=== PATIENT | female | born 1975 | race Caucasian/White ===

== ENCOUNTER 2017-05-15 12:05 | Emergency (ER) | payer MEDICAID ==
[~2017-05-15] VITALS: Ht 162.6 cm; Wt 86.0 kg
[~2017-05-15 12:05] MED LIST: LEVO100T PO; OMEP20CA10 PO; ONDA4TAB6 PO; OXYC-150 PO
[2017-05-15] MEDS ORDERED: ketorolac trometh inj. 60 MG/2 ML VIAL IM ONE (12:20)
[2017-05-15] MEDS ORDERED: HYDR-569 PO (12:21)
[2017-05-15] MEDS ORDERED: DICL50TA8 PO (12:21)
[2017-05-15 12:33] VITALS: BP 128/87
== END 2017-05-15 12:35 | disposition home or self-care (01) ==
LOC: ER 12:05
DX: M54.9 Dorsalgia, unspecified (principal); G89.29 Other chronic pain; K21.9 Gastro-esophageal reflux disease without esophagitis; E03.9 Hypothyroidism, unspecified; E11.9 Type 2 diabetes mellitus without complications; G43.909 Migraine, unspecified, not intractable, without status migrainosus; Z90.710 Acquired absence of both cervix and uterus; Z90.49 Acquired absence of other specified parts of digestive tract; Z88.0 Allergy status to penicillin; Z88.2 Allergy status to sulfonamides; Z79.899 Other long term (current) drug therapy
CPT/HCPCS: 96372; 99283; J1885

== ENCOUNTER 2019-04-16 04:53 | Emergency (ER) | payer MEDICAID, MEDICARE ==
[~2019-04-16] VITALS: Ht 162.6 cm; Wt 100.0 kg
[~2019-04-16 04:53] MED LIST changes: +DICL50TA8 PO; +HYDR-4383 PO; -OMEP20CA10 PO; +OMEP20CA15 PO
[2019-04-16] MEDS ORDERED: normal saline 1000ML IV soln IV ONE (05:15)
[2019-04-16 05:53] LABS: PARTIAL THROMBOPLASTIN TIME 31 SECONDS (22-32)
[2019-04-16 05:55] LABS: ALANINE AMINOTRANSFERASE 143 U/L (12-78); ALBUMIN/GLOBULIN RATIO 0.6 (1.1-1.5); ALKALINE PHOSPHATASE 163 IU/L (46-116); ANION GAP 11 (8-16); ASPARTATE AMINO TRANSFERASE 134 U/L (10-37); BILIRUBIN,TOTAL 0.6 MG/DL (0.1-1.0); BLOOD UREA NITROGEN 6 MG/DL (7-18); BUN/CREATININE RATIO 7.6 (6.6-38.0); CALCIUM 8.9 MG/DL (8.5-10.1); CHLORIDE 98 MMOL/L (99-107); CREATININE 0.79 MG/DL (0.40-0.90); GLUCOSE 346 MG/DL (70-104); MAGNESIUM 1.9 MG/DL (1.5-2.4); POTASSIUM 3.7 MMOL/L (3.5-5.1); SODIUM 132 MMOL/L (135-145); TOTAL CARBON DIOXIDE 23.3 MMOL/L (24-32); TOTAL PROTEIN 7.8 G/DL (6.4-8.2); eGFR 80 ML/MIN
[2019-04-16 06:10] LABS: MEAN PLATELET VOLUME 9.5 FL (7.4-10.4)
[2019-04-16 06:13] LABS: CLARITY,URINE SLIGHTLY CLOUDY (Clear); COLOR,URINE YELLOW (Yellow); GLUCOSE, URINE 500 mg/dl (Neg); KETONES,URINE NEGATIVE (Neg); LEUKOCYTE ESTERASE ,URINE TRACE (Neg); NITRITES, URINE NEGATIVE (Neg); OCCULT BLOOD,URINE NEGATIVE (Neg); PH,URINE 5.5 (4.8-8.0); PROTEIN,URINE TRACE mg/dl (Neg); URINE HCG NEGATIVE (NEG); UROBILINOGEN,URINE 0.2 E.U/dL (0.2-1.0)
[2019-04-16 06:13] LABS: BASOPHILS # (AUTO) 0.1 X10'3 (0-0.2); EOSINOPHILS # (AUTO) 0.2 X10'3 (0-0.9); EOSINOPHILS % (AUTO) 2.6 % (0-6); HEMOGLOBIN 15.4 g/dl (12.0-16.0); LYMPHOCYTES # (AUTO) 2.7 X10'3 (1.1-4.8); LYMPHOCYTES % (AUTO) 37.5 % (21-51); MEAN CORPUSCULAR HEMOGLOBIN 32.7 PG (27.0-31.0); MEAN CORPUSCULAR HGB CONC 35.1 g/dL (33.0-36.5); MEAN CORPUSCULAR VOLUME 93.3 FL (78-98); MONOCYTES # (AUTO) 0.7 X10'3 (0-0.9); MONOCYTES % (AUTO) 9.2 % (2-12); NEUTROPHILS # (AUTO) 3.5 X10'3 (1.8-7.7); NEUTROPHILS % (AUTO) 49.7 % (42-75); PLATELET COUNT 269 X10'3 (140-440); RED BLOOD COUNT 4.71 X10'6 (4.20-5.60); RED CELL DISTRIBUTION WIDTH 13.3 % (11.5-14.5); WHITE BLOOD COUNT 7.1 X10'3 (4.5-11.0)
[2019-04-16 06:18] LABS: LIPASE 247 U/L (73-393)
[2019-04-16 06:19] LABS: UA COLLECTION TYPE CLN CATCH MIDSTREAM
[2019-04-16 06:33] LABS: BACTERIA,URINE 2+ /HPF (Neg); MUCUS STRANDS NONE SEEN /LPF (Neg); RBC,URINE 0-2 /HPF (0-2); SQUAMOUS EPITHELIAL CELL,UR MODERATE /LPF (FEW)
[2019-04-16] MEDS ORDERED: normal saline 1000ML IV soln IVB ONE (06:45)
[2019-04-16 07:48] VITALS: BP 139/75
--- NOTE | 2019-04-16 07:56 | NUR ---
Riki ([phone]) CONTACT FOR TRANSPORTATION. HE'S ON HIS WAY,
== END 2019-04-16 08:11 | disposition home or self-care (01) ==
LOC: ER 04:54
DX: J11.1 Influenza due to unidentified influenza virus with other respiratory manifestations (principal); G43.909 Migraine, unspecified, not intractable, without status migrainosus; K21.9 Gastro-esophageal reflux disease without esophagitis; E11.9 Type 2 diabetes mellitus without complications; E03.9 Hypothyroidism, unspecified; G89.29 Other chronic pain; Z90.49 Acquired absence of other specified parts of digestive tract; Z90.710 Acquired absence of both cervix and uterus; Z98.51 Tubal ligation status; Z98.890 Other specified postprocedural states; Z86.19 Personal history of other infectious and parasitic diseases; Z88.1 Allergy status to other antibiotic agents; Z88.0 Allergy status to penicillin; Z88.2 Allergy status to sulfonamides; Z79.899 Other long term (current) drug therapy
CPT/HCPCS: 36415; 71045; 74176; 80053; 81001; 81025; 83605; 83690; 83735; 84145; 85025; 85610; 85730; 87040; 87088; 87502; 87503; 93005; 99285; J7030

== ENCOUNTER 2019-04-25 19:02 | Emergency (ER) | payer MEDICARE ==
[~2019-04-25] VITALS: Ht 162.6 cm; Wt 97.8 kg
[2019-04-25] MEDS ORDERED: acetaminophen 325mg tablet PO STA (19:31)
[2019-04-25] MEDS ORDERED: normal saline 1000ML IV soln IV ONE (19:35)
[2019-04-25 19:38] LABS: CLARITY,URINE CLEAR (Clear); COLOR,URINE STRAW (Yellow); GLUCOSE, URINE >=1000 mg/dl (Neg); KETONES,URINE NEGATIVE (Neg); LEUKOCYTE ESTERASE ,URINE NEGATIVE (Neg); NITRITES, URINE NEGATIVE (Neg); OCCULT BLOOD,URINE NEGATIVE (Neg); PROTEIN,URINE NEGATIVE (Neg); UROBILINOGEN,URINE 0.2 E.U/dL (0.2-1.0)
[2019-04-25 19:43] LABS: UA COLLECTION TYPE CLN CATCH MIDSTREAM
[2019-04-25 19:45] LABS: BACTERIA,URINE NONE SEEN /HPF (Neg); RBC,URINE 0-2 /HPF (0-2); SQUAMOUS EPITHELIAL CELL,UR FEW /LPF (FEW); WBC,URINE NONE SEEN /HPF (0-4)
[2019-04-25 19:51] LABS: BASOPHILS # (AUTO) 0.1 X10'3 (0-0.2); BASOPHILS % (AUTO) 1.2 % (0-1); EOSINOPHILS # (AUTO) 0.2 X10'3 (0-0.9); EOSINOPHILS % (AUTO) 2.3 % (0-6); HEMATOCRIT 43.9 % (35.0-45.0); HEMOGLOBIN 15.6 g/dl (12.0-16.0); LYMPHOCYTES # (AUTO) 2.4 X10'3 (1.1-4.8); LYMPHOCYTES % (AUTO) 27.9 % (21-51); MEAN CORPUSCULAR HEMOGLOBIN 32.8 PG (27.0-31.0); MEAN CORPUSCULAR HGB CONC 35.6 g/dL (33.0-36.5); MEAN CORPUSCULAR VOLUME 92.3 FL (78-98); MEAN PLATELET VOLUME 9.4 FL (7.4-10.4); MONOCYTES # (AUTO) 0.6 X10'3 (0-0.9); MONOCYTES % (AUTO) 7.1 % (2-12); NEUTROPHILS # (AUTO) 5.2 X10'3 (1.8-7.7); NEUTROPHILS % (AUTO) 61.5 % (42-75); PLATELET COUNT 298 X10'3 (140-440); RED BLOOD COUNT 4.76 X10'6 (4.20-5.60); RED CELL DISTRIBUTION WIDTH 13.5 % (11.5-14.5); WHITE BLOOD COUNT 8.5 X10'3 (4.5-11.0)
[2019-04-25 20:10] LABS: ALANINE AMINOTRANSFERASE 186 U/L (12-78); ALBUMIN 3.1 G/DL (3.4-5.0); ALBUMIN/GLOBULIN RATIO 0.6 (1.1-1.5); ALKALINE PHOSPHATASE 167 IU/L (46-116); ANION GAP 11 (8-16); ASPARTATE AMINO TRANSFERASE 169 U/L (10-37); BILIRUBIN,TOTAL 0.3 MG/DL (0.1-1.0); BLOOD UREA NITROGEN 7 MG/DL (7-18); CALCIUM 8.9 MG/DL (8.5-10.1); CHLORIDE 97 MMOL/L (99-107); LIPASE 382 U/L (73-393); SODIUM 131 MMOL/L (135-145); TOTAL CARBON DIOXIDE 23.5 MMOL/L (24-32); TOTAL PROTEIN 8.2 G/DL (6.4-8.2); eGFR 61 ML/MIN
[2019-04-25 20:11] LABS: POTASSIUM 3.8 MMOL/L (3.5-5.1)
[2019-04-25 20:14] LABS: GLUCOSE 478 MG/DL (70-104)
[2019-04-25] MEDS ORDERED: insulin regular, human 10 units/0.1 ml syringe IV ONE (20:15)
[2019-04-25] MEDS ORDERED: clindamycin phosphate inj 600 MG in normal saline 50ml IV soln 50 ML IV ONE (20:15)
[2019-04-25] MEDS ORDERED: insulin regular, human U-100 3ml vial - multi-dose IV ONE (20:25)
[2019-04-25] MEDS ORDERED: DOXY100C76 PO (20:30)
[2019-04-25] MEDS ORDERED: PRED20TA PO (20:30)
[2019-04-25] MEDS ORDERED: clindamycin 600mg/D5W 50ml 50 ML IV ONE ×2 (20:40)
--- NOTE | 2019-04-25 21:28 | NUR ---
[place] OK TO DISCHARGE PT WITH BG OF 308
[2019-04-25 21:34] VITALS: BP 141/95
== END 2019-04-25 21:35 | disposition home or self-care (01) ==
LOC: ER 19:03
DX: J32.8 Other chronic sinusitis (principal); B96.89 Other specified bacterial agents as the cause of diseases classified elsewhere; E11.65 Type 2 diabetes mellitus with hyperglycemia; E87.2 Acidosis; G43.909 Migraine, unspecified, not intractable, without status migrainosus; K21.9 Gastro-esophageal reflux disease without esophagitis; E03.9 Hypothyroidism, unspecified; G89.29 Other chronic pain; F41.9 Anxiety disorder, unspecified; F32.9 Major depressive disorder, single episode, unspecified; Z90.49 Acquired absence of other specified parts of digestive tract; Z98.51 Tubal ligation status; Z86.19 Personal history of other infectious and parasitic diseases; Z72.89 Other problems related to lifestyle; Z79.2 Long term (current) use of antibiotics; Z88.0 Allergy status to penicillin; Z88.2 Allergy status to sulfonamides; Z88.8 Allergy status to other drugs, medicaments and biological substances; Z79.899 Other long term (current) drug therapy
CPT/HCPCS: 36415; 71045; 80053; 81001; 82948; 83605; 83690; 84145; 85025; 87040; 96365; 96375; 99284; J1815; J7030; J3490

== ENCOUNTER 2019-04-27 20:20 | Emergency (ER) | payer MEDICARE ==
[~2019-04-27] VITALS: Ht 162.6 cm; Wt 200.0 kg
[~2019-04-27 20:20] MED LIST changes: -DICL50TA8 PO; +DOXY100C76 PO; -HYDR-4383 PO; -ONDA4TAB6 PO; -OXYC-150 PO; +PRED20TA PO
[2019-04-27] MEDS ORDERED: normal saline 1000ML IV soln IVB ONE (20:40)
[2019-04-27] MEDS ORDERED: insulin regular, human 10 units/0.1 ml syringe IV ONE (20:40)
[2019-04-27] MEDS ORDERED: insulin regular, human U-100 3ml vial - multi-dose IV ONE (20:45)
[2019-04-27 20:54] LABS: BASOPHILS % (AUTO) 0.7 % (0-1); EOSINOPHILS % (AUTO) 0.2 % (0-6); HEMATOCRIT 44.1 % (35.0-45.0); HEMOGLOBIN 15.5 g/dl (12.0-16.0); LYMPHOCYTES # (AUTO) 1.1 X10'3 (1.1-4.8); LYMPHOCYTES % (AUTO) 15.9 % (21-51); MEAN CORPUSCULAR HEMOGLOBIN 32.9 PG (27.0-31.0); MEAN CORPUSCULAR HGB CONC 35.2 g/dL (33.0-36.5); MEAN CORPUSCULAR VOLUME 93.6 FL (78-98); MEAN PLATELET VOLUME 9.6 FL (7.4-10.4); MONOCYTES # (AUTO) 0.1 X10'3 (0-0.9); MONOCYTES % (AUTO) 1.9 % (2-12); NEUTROPHILS # (AUTO) 5.5 X10'3 (1.8-7.7); NEUTROPHILS % (AUTO) 81.3 % (42-75); PLATELET COUNT 306 X10'3 (140-440); RED BLOOD COUNT 4.71 X10'6 (4.20-5.60); RED CELL DISTRIBUTION WIDTH 13.2 % (11.5-14.5); WHITE BLOOD COUNT 6.7 X10'3 (4.5-11.0)
[2019-04-27 21:03] LABS: CLARITY,URINE CLEAR (Clear); COLOR,URINE STRAW (Yellow); GLUCOSE, URINE >=1000 mg/dl (Neg); KETONES,URINE 15 mg/dl (Neg); LEUKOCYTE ESTERASE ,URINE NEGATIVE (Neg); NITRITES, URINE NEGATIVE (Neg); OCCULT BLOOD,URINE NEGATIVE (Neg); PH,URINE 6.5 (4.8-8.0); PROTEIN,URINE NEGATIVE (Neg); UROBILINOGEN,URINE 0.2 E.U/dL (0.2-1.0)
[2019-04-27 21:05] LABS: URINE HCG NEGATIVE (NEG)
[2019-04-27 21:10] LABS: ALANINE AMINOTRANSFERASE 158 U/L (12-78); ALBUMIN 3.2 G/DL (3.4-5.0); ALBUMIN/GLOBULIN RATIO 0.6 (1.1-1.5); ALKALINE PHOSPHATASE 155 IU/L (46-116); ANION GAP 10 (8-16); ASPARTATE AMINO TRANSFERASE 161 U/L (10-37); BILIRUBIN,TOTAL 0.4 MG/DL (0.1-1.0); BLOOD UREA NITROGEN 11 MG/DL (7-18); BUN/CREATININE RATIO 11.1 (6.6-38.0); CALCIUM 8.7 MG/DL (8.5-10.1); CHLORIDE 98 MMOL/L (99-107); CREATININE 0.99 MG/DL (0.40-0.90); LIPASE 350 U/L (73-393); POTASSIUM 4.5 MMOL/L (3.5-5.1); SODIUM 130 MMOL/L (135-145); TOTAL CARBON DIOXIDE 22.2 MMOL/L (24-32); TOTAL PROTEIN 8.2 G/DL (6.4-8.2); eGFR 62 ML/MIN
[2019-04-27 21:19] LABS: UA COLLECTION TYPE CLN CATCH MIDSTREAM
[2019-04-27 21:21] LABS: BACTERIA,URINE FEW /HPF (Neg); RBC,URINE NONE SEEN /HPF (0-2); SQUAMOUS EPITHELIAL CELL,UR MODERATE /LPF (FEW); WBC,URINE NONE SEEN /HPF (0-4)
[2019-04-27 21:26] LABS: GLUCOSE 524 MG/DL (70-104)
[2019-04-27] MEDS ORDERED: METF500T PO (23:11)
[2019-04-27 23:19] VITALS: BP 115/80
[2019-04-27] MEDS ORDERED: FLUC150T PO (23:19)
== END 2019-04-27 23:21 | disposition home or self-care (01) ==
LOC: ER 20:21
DX: E11.65 Type 2 diabetes mellitus with hyperglycemia (principal); K21.9 Gastro-esophageal reflux disease without esophagitis; E03.9 Hypothyroidism, unspecified; G89.29 Other chronic pain; F41.9 Anxiety disorder, unspecified; F32.9 Major depressive disorder, single episode, unspecified; F17.200 Nicotine dependence, unspecified, uncomplicated; Z90.49 Acquired absence of other specified parts of digestive tract; Z90.710 Acquired absence of both cervix and uterus; Z98.51 Tubal ligation status; Z98.890 Other specified postprocedural states
CPT/HCPCS: 36415; 80053; 81001; 81025; 82009; 82948; 83690; 85025; 96361; 96374; 99283; J7030; J1815

== ENCOUNTER 2019-06-07 12:00 | Emergency (ER) | payer MEDICARE ==
[~2019-06-07] VITALS: Ht 162.6 cm; Wt 92.4 kg
[~2019-06-07 12:00] MED LIST changes: -DOXY100C76 PO; -PRED20TA PO
[2019-06-07 12:07] VITALS: BP 144/101
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
[2019-06-07] MEDS ORDERED: ondansetron 4mg rapidly disintigrating tab PO ONE (14:20)
[2019-06-07] MEDS ORDERED: HYDROcodone/acetaminophen 5mg/325mg tablet PO ONE (14:20)
--- NOTE | 2019-06-07 14:21 | NUR ---
pt asking for "something stronger than motrin", Devin Perales [employer]ASK[employer] aware, gave verbal order to zofran 4mg ODT x1 now, norco 5/325mg 1 tab PO x1 now, molding technician at bedside
== END 2019-06-07 14:36 | disposition home or self-care (01) ==
LOC: ER 12:00
DX: S93.602A Unspecified sprain of left foot, initial encounter (principal); K21.9 Gastro-esophageal reflux disease without esophagitis; E11.9 Type 2 diabetes mellitus without complications; E03.9 Hypothyroidism, unspecified; G89.29 Other chronic pain; F41.9 Anxiety disorder, unspecified; F32.9 Major depressive disorder, single episode, unspecified; F17.200 Nicotine dependence, unspecified, uncomplicated; Z86.19 Personal history of other infectious and parasitic diseases; Z90.49 Acquired absence of other specified parts of digestive tract; Z90.710 Acquired absence of both cervix and uterus; Z98.51 Tubal ligation status; Z98.890 Other specified postprocedural states; Z88.1 Allergy status to other antibiotic agents; Z88.0 Allergy status to penicillin; Z88.2 Allergy status to sulfonamides; Z79.899 Other long term (current) drug therapy; W22.8XXA Striking against or struck by other objects, initial encounter; Y93.89 Activity, other specified; Y92.89 Other specified places as the place of occurrence of the external cause; Y99.8 Other external cause status
CPT/HCPCS: 73630; 99283

== ENCOUNTER 2019-08-25 17:52 | Emergency (ER) | payer MEDICARE, MEDICAID ==
[~2019-08-25] VITALS: Ht 162.6 cm; Wt 100.0 kg
[2019-08-25 18:04] VITALS: BP 129/75
[2019-08-25] MEDS ORDERED: PROC5TAB56 PO (20:13)
[2019-08-25] MEDS ORDERED: ALBU8HFA PO (20:13)
[2019-08-25] MEDS ORDERED: SUMA25TA35 PO (20:13)
== END 2019-08-25 20:24 | disposition home or self-care (01) ==
LOC: ER 17:53
DX: J06.9 Acute upper respiratory infection, unspecified (principal); G43.909 Migraine, unspecified, not intractable, without status migrainosus; K21.9 Gastro-esophageal reflux disease without esophagitis; E11.9 Type 2 diabetes mellitus without complications; E03.9 Hypothyroidism, unspecified; G89.29 Other chronic pain; F41.9 Anxiety disorder, unspecified; F32.9 Major depressive disorder, single episode, unspecified; F17.200 Nicotine dependence, unspecified, uncomplicated; Z86.19 Personal history of other infectious and parasitic diseases; Z98.51 Tubal ligation status; Z90.49 Acquired absence of other specified parts of digestive tract; Z90.710 Acquired absence of both cervix and uterus; Z98.890 Other specified postprocedural states; Z72.89 Other problems related to lifestyle; Z88.0 Allergy status to penicillin; Z88.2 Allergy status to sulfonamides; Z79.899 Other long term (current) drug therapy
CPT/HCPCS: 36415; 99283; U0003

== ENCOUNTER 2020-03-09 13:18 | Emergency (ER) | payer MEDICARE, MEDICAID ==
[~2020-03-09] VITALS: Ht 162.6 cm; Wt 94.6 kg
[~2020-03-09 13:18] MED LIST changes: +HYDR-4383 PO; +PROC5TAB56 PO; +SUMA25TA35 PO
[2020-03-09] MEDS ORDERED: dexamethasone sod phosphate 10mg/ml inj IM STA (14:27)
[2020-03-09] MEDS ORDERED: baclofen 10mg tablet PO STA (14:27)
[2020-03-09] MEDS ORDERED: ketorolac tromethamine 15mg/ml inj. IM ONE (14:30)
[2020-03-09] MEDS ORDERED: morphine 4 MG/ML inj SYRINge IM ONE (15:20)
[2020-03-09 15:42] VITALS: BP 145/93
== END 2020-03-09 16:11 | disposition home or self-care (01) ==
LOC: ER 13:19
DX: G89.29 Other chronic pain (principal); M54.5 Low back pain; M25.561 Pain in right knee; M25.551 Pain in right hip; G43.909 Migraine, unspecified, not intractable, without status migrainosus; K21.9 Gastro-esophageal reflux disease without esophagitis; E11.9 Type 2 diabetes mellitus without complications; E03.9 Hypothyroidism, unspecified; F32.9 Major depressive disorder, single episode, unspecified; Z90.49 Acquired absence of other specified parts of digestive tract; Z90.710 Acquired absence of both cervix and uterus; Z98.51 Tubal ligation status; Z98.890 Other specified postprocedural states; Z72.89 Other problems related to lifestyle; Z88.2 Allergy status to sulfonamides; Z88.1 Allergy status to other antibiotic agents; Z88.0 Allergy status to penicillin; Z88.8 Allergy status to other drugs, medicaments and biological substances; Z79.899 Other long term (current) drug therapy
CPT/HCPCS: 96372; 99284; J1100; J1885; J2270

== ENCOUNTER 2020-07-16 13:21 | Emergency (ER) | payer MEDICARE, MEDICAID ==
[~2020-07-16] VITALS: Ht 162.6 cm; Wt 95.5 kg
[2020-07-16 14:03] VITALS: BP 156/80
[2020-07-16] MEDS ORDERED: LIDOcaine 1% W/epiNEPHrine 1:200,000 10ml vial IJ ONE (17:55)
[2020-07-16] MEDS ORDERED: CLIN-97 PO (18:12)
== END 2020-07-16 18:25 | disposition home or self-care (01) ==
LOC: ER 13:22
DX: L02.211 Cutaneous abscess of abdominal wall (principal); L02.416 Cutaneous abscess of left lower limb; G43.909 Migraine, unspecified, not intractable, without status migrainosus; E03.9 Hypothyroidism, unspecified; E11.9 Type 2 diabetes mellitus without complications; G89.29 Other chronic pain; K21.9 Gastro-esophageal reflux disease without esophagitis; Z86.19 Personal history of other infectious and parasitic diseases; Z90.49 Acquired absence of other specified parts of digestive tract; Z90.710 Acquired absence of both cervix and uterus; Z98.51 Tubal ligation status; Z72.89 Other problems related to lifestyle; Z88.0 Allergy status to penicillin; Z88.1 Allergy status to other antibiotic agents; Z88.2 Allergy status to sulfonamides; Z88.8 Allergy status to other drugs, medicaments and biological substances; Z79.899 Other long term (current) drug therapy
CPT/HCPCS: 99283

== ENCOUNTER 2020-09-11 20:47 | Emergency (ER) | payer MEDICARE, MEDICAID ==
[~2020-09-11] VITALS: Ht 162.6 cm; Wt 98.2 kg
[~2020-09-11 20:47] MED LIST changes: +CLIN-97 PO
[2020-09-11 20:50] VITALS: BP 167/102
[2020-09-11] MEDS ORDERED: ONDA4TAB12 PO (22:27)
== END 2020-09-11 22:37 | disposition home or self-care (01) ==
LOC: ER 20:49
DX: R05 Cough (principal); Z20.822 Contact with and (suspected) exposure to COVID-19; R09.89 Other specified symptoms and signs involving the circulatory and respiratory systems; G43.909 Migraine, unspecified, not intractable, without status migrainosus; K21.9 Gastro-esophageal reflux disease without esophagitis; E11.9 Type 2 diabetes mellitus without complications; E03.9 Hypothyroidism, unspecified; G89.29 Other chronic pain; F41.9 Anxiety disorder, unspecified; F32.9 Major depressive disorder, single episode, unspecified; Z86.19 Personal history of other infectious and parasitic diseases; Z90.89 Acquired absence of other organs; Z90.710 Acquired absence of both cervix and uterus; Z98.51 Tubal ligation status; Z98.890 Other specified postprocedural states; Z72.89 Other problems related to lifestyle; Z88.1 Allergy status to other antibiotic agents; Z88.0 Allergy status to penicillin; Z88.2 Allergy status to sulfonamides; Z79.899 Other long term (current) drug therapy; Z79.2 Long term (current) use of antibiotics
CPT/HCPCS: 87635; 99283; C9803

== ENCOUNTER 2020-11-16 18:44 | Emergency (ER) | payer MEDICARE, MEDICAID ==
[~2020-11-16] VITALS: Ht 162.6 cm; Wt 101.0 kg
[~2020-11-16 18:44] MED LIST changes: +ONDA4TAB12 PO
[2020-11-16 19:54] LABS: URINE HCG NEGATIVE (NEG)
[2020-11-16 19:56] LABS: BASOPHILS % (AUTO) 0.4 % (0-1); EOSINOPHILS # (AUTO) 0.7 X10'3 (0-0.9); EOSINOPHILS % (AUTO) 6.4 % (0-6); HEMATOCRIT 42.8 % (35.0-45.0); HEMOGLOBIN 14.9 g/dl (12.0-16.0); LYMPHOCYTES # (AUTO) 2.9 X10'3 (1.1-4.8); LYMPHOCYTES % (AUTO) 28.9 % (21-51); MEAN CORPUSCULAR HEMOGLOBIN 31.4 PG (27.0-31.0); MEAN CORPUSCULAR HGB CONC 34.8 g/dL (33.0-36.5); MEAN CORPUSCULAR VOLUME 90.2 FL (78-98); MEAN PLATELET VOLUME 8.8 FL (7.4-10.4); MONOCYTES # (AUTO) 0.5 X10'3 (0-0.9); MONOCYTES % (AUTO) 5.4 % (2-12); NEUTROPHILS % (AUTO) 58.9 % (42-75); PLATELET COUNT 304 X10'3 (140-440); RED BLOOD COUNT 4.74 X10'6 (4.20-5.60); RED CELL DISTRIBUTION WIDTH 13.9 % (11.5-14.5); WHITE BLOOD COUNT 10.1 X10'3 (4.5-11.0)
[2020-11-16 20:01] LABS: ALANINE AMINOTRANSFERASE 22 U/L (12-78); ALBUMIN 3.4 G/DL (3.4-5.0); ALBUMIN/GLOBULIN RATIO 0.9 (1.1-1.5); ALKALINE PHOSPHATASE 107 IU/L (46-116); ANION GAP 13 (8-16); ASPARTATE AMINO TRANSFERASE 15 U/L (10-37); BILIRUBIN,TOTAL 0.5 MG/DL (0.1-1.0); BLOOD UREA NITROGEN 12 MG/DL (7-18); BUN/CREATININE RATIO 13.3 (6.6-38.0); CALCIUM 8.6 MG/DL (8.5-10.1); CHLORIDE 106 MMOL/L (99-107); GLUCOSE 141 MG/DL (70-104); LIPASE 122 U/L (73-393); POTASSIUM 3.8 MMOL/L (3.5-5.1); SODIUM 143 MMOL/L (135-145); TOTAL PROTEIN 7.3 G/DL (6.4-8.2); eGFR 68 ML/MIN
[2020-11-16 20:20] LABS: CLARITY,URINE Clear (Clear); COLOR,URINE YELLOW (Yellow); GLUCOSE, URINE NEGATIVE (Neg); KETONES,URINE NEGATIVE (Neg); PROTEIN,URINE NEGATIVE (Neg); UA COLLECTION TYPE CLN CATCH MIDSTREAM
[2020-11-16 20:21] LABS: NITRITES, URINE NEGATIVE (Neg); OCCULT BLOOD,URINE Trace (Neg); UROBILINOGEN,URINE 0.2 E.U/dL (0.2-1.0)
[2020-11-16 20:22] LABS: LEUKOCYTE ESTERASE ,URINE NEGATIVE (Neg)
[2020-11-16] MEDS ORDERED: normal saline 1000ML IV soln IVB ONE (20:25)
[2020-11-16] MEDS ORDERED: ondansetron/PF 4mg/2ml inj IV ONE (20:25)
[2020-11-16] MEDS ORDERED: ketorolac trometh. 30mg/ml inj. IV ONE (20:25)
[2020-11-16] MEDS ORDERED: HYDROmorphone inj. 0.5 MG/0.5 ML DISP.SYRIN IV PRN (20:25)
[2020-11-16 20:36] LABS: BACTERIA,URINE FEW /HPF (Neg); MUCUS STRANDS FEW /LPF (Neg); RBC,URINE 0-2 /HPF (0-2); SQUAMOUS EPITHELIAL CELL,UR FEW /LPF (FEW); WBC,URINE 0-4 /HPF (0-4)
[2020-11-16] MEDS ORDERED: HYDROmorphone 1 mg/ml syringe IV ONE (23:35)
[2020-11-17] MEDS ORDERED: diphenhydrAMINE 50 mg/ml inj IV ONE (00:40)
[2020-11-17 01:03] VITALS: BP 155/100
== END 2020-11-17 01:05 | disposition home or self-care (01) ==
LOC: ER 18:45
DX: R10.32 Left lower quadrant pain (principal); M54.50 Low back pain, unspecified; G43.909 Migraine, unspecified, not intractable, without status migrainosus; K21.9 Gastro-esophageal reflux disease without esophagitis; E11.9 Type 2 diabetes mellitus without complications; E03.9 Hypothyroidism, unspecified; G89.29 Other chronic pain; F41.9 Anxiety disorder, unspecified; F32.9 Major depressive disorder, single episode, unspecified; Z86.19 Personal history of other infectious and parasitic diseases; Z90.89 Acquired absence of other organs; Z90.710 Acquired absence of both cervix and uterus; Z98.51 Tubal ligation status; Z98.890 Other specified postprocedural states; Z72.89 Other problems related to lifestyle; Z88.1 Allergy status to other antibiotic agents; Z88.0 Allergy status to penicillin; Z88.8 Allergy status to other drugs, medicaments and biological substances; Z79.2 Long term (current) use of antibiotics; Z79.899 Other long term (current) drug therapy
CPT/HCPCS: 36415; 74176; 76856; 80053; 81001; 81025; 83690; 85025; 93976; 96361; 96374; 96375; 96376; 99285; J1170; J1200; J1885; J2405; J7030

== ENCOUNTER 2021-06-21 09:44 | Emergency (ER) | payer MEDICARE, MEDICAID ==
[~2021-06-21] VITALS: Ht 162.6 cm; Wt 106.8 kg
[2021-06-21 10:05] VITALS: BP 177/126
[2021-06-21] MEDS ORDERED: ONDA4TAB12 PO (10:41)
== END 2021-06-21 10:55 | disposition home or self-care (01) ==
LOC: ER 09:45
DX: B34.9 Viral infection, unspecified (principal); Z20.822 Contact with and (suspected) exposure to COVID-19; R50.9 Fever, unspecified; R51.9 Headache, unspecified; R42 Dizziness and giddiness; R11.2 Nausea with vomiting, unspecified; G43.909 Migraine, unspecified, not intractable, without status migrainosus; K21.9 Gastro-esophageal reflux disease without esophagitis; E11.9 Type 2 diabetes mellitus without complications; E03.9 Hypothyroidism, unspecified; G89.29 Other chronic pain; F41.9 Anxiety disorder, unspecified; F32.A Depression, unspecified; Z86.19 Personal history of other infectious and parasitic diseases; Z90.89 Acquired absence of other organs; Z90.710 Acquired absence of both cervix and uterus; Z98.51 Tubal ligation status; Z98.890 Other specified postprocedural states; Z72.89 Other problems related to lifestyle; Z88.1 Allergy status to other antibiotic agents; Z88.0 Allergy status to penicillin; Z88.2 Allergy status to sulfonamides; Z88.8 Allergy status to other drugs, medicaments and biological substances; Z79.2 Long term (current) use of antibiotics; Z79.899 Other long term (current) drug therapy
CPT/HCPCS: 99283

== ENCOUNTER 2023-11-07 19:56 | Emergency (ER) | payer MEDICARE, MEDICAID ==
[~2023-11-07] VITALS: Ht 162.6 cm; Wt 92.3 kg
[~2023-11-07 19:56] MED LIST changes: +ONDA-243 PO; -ONDA4TAB12 PO
[2023-11-07] MEDS: orphenadrine citrate 60mg/2ml inj. IM ONE (21:14)
[2023-11-07 21:56] VITALS: BP 135/95; PULSE 82; RESP 18; TEMP 98.4; O2SAT 97
== END 2023-11-07 21:58 | disposition home or self-care (01) ==
LOC: ER 19:56
DX: M25.512 Pain in left shoulder (principal); G89.29 Other chronic pain; M54.9 Dorsalgia, unspecified; G43.909 Migraine, unspecified, not intractable, without status migrainosus; K21.9 Gastro-esophageal reflux disease without esophagitis; E03.9 Hypothyroidism, unspecified; E11.9 Type 2 diabetes mellitus without complications; F41.9 Anxiety disorder, unspecified; F32.A Depression, unspecified; F17.210 Nicotine dependence, cigarettes, uncomplicated; Z90.49 Acquired absence of other specified parts of digestive tract; Z90.710 Acquired absence of both cervix and uterus; Z98.51 Tubal ligation status; Z98.890 Other specified postprocedural states; Z88.1 Allergy status to other antibiotic agents; Z88.0 Allergy status to penicillin; Z88.2 Allergy status to sulfonamides; Z88.8 Allergy status to other drugs, medicaments and biological substances; Z79.899 Other long term (current) drug therapy
CPT/HCPCS: 73030; 96372; 99283; J2360; A4565; L3650

== ENCOUNTER 2024-02-04 15:47 | Emergency (ER) | payer MEDICARE, MEDICAID ==
[~2024-02-04] VITALS: Ht 162.6 cm; Wt 82.0 kg
[2024-02-04 17:04] VITALS: BP 141/90; PULSE 90; RESP 16; TEMP 98; O2SAT 97
[2024-02-04] MEDS ORDERED: FLUT16SP2 BOTHNARES (17:39)
[2024-02-04] MEDS ORDERED: PSEU120T56 PO (17:39)
[2024-02-04] MEDS ORDERED: LEVO-65 PO (17:39)
== END 2024-02-04 17:45 | disposition home or self-care (01) ==
LOC: ER 15:48
DX: J32.9 Chronic sinusitis, unspecified (principal); E11.9 Type 2 diabetes mellitus without complications; K21.9 Gastro-esophageal reflux disease without esophagitis; E03.9 Hypothyroidism, unspecified; F41.9 Anxiety disorder, unspecified; F32.A Depression, unspecified; G89.29 Other chronic pain; M54.9 Dorsalgia, unspecified; G43.909 Migraine, unspecified, not intractable, without status migrainosus; Z88.1 Allergy status to other antibiotic agents; Z88.2 Allergy status to sulfonamides; Z88.5 Allergy status to narcotic agent; Z88.8 Allergy status to other drugs, medicaments and biological substances; Z88.0 Allergy status to penicillin; Z90.710 Acquired absence of both cervix and uterus; Z90.49 Acquired absence of other specified parts of digestive tract; Z79.899 Other long term (current) drug therapy
CPT/HCPCS: 99283

== ENCOUNTER 2024-05-29 15:39 | Outpatient (CLI) | payer MEDICARE, MEDICAID ==
[~2024-05-29 15:39] MED LIST changes: +FLUT16SP2 BOTHNARES; +PSEU120T56 PO
== END 2024-05-29 23:59 | disposition home or self-care (01) ==
LOC: MRI02 15:39
PROVIDERS: ATTEND Family Medicine
DX: M25.462 Effusion, left knee (principal); M25.562 Pain in left knee
CPT/HCPCS: 73721

== ENCOUNTER → 2024-06-23 | Emergency (ER) | payer MEDICARE, MEDICAID ==
[~2024-06-23] VITALS: Ht 162.6 cm; Wt 82.7 kg
[~2024-06-23] MED LIST changes: +HYDROcodone/acetaminophen 10/325mg tab PO STA; +iohexol 300mg/ml 100ml inj. ONE; +ondansetron 4mg rapidly disintigrating tab PO STA
[2024-06-23 15:35] VITALS: BP 142/94; PULSE 93; RESP 15; TEMP 98.5; O2SAT 100
[2024-06-23 16:24] LABS: BILIRUBIN,URINE NEGATIVE (Neg); CLARITY,URINE CLEAR (Clear); COLOR,URINE YELLOW (Yellow); GLUCOSE, URINE NEGATIVE (Neg); KETONES,URINE NEGATIVE (Neg); LEUKOCYTE ESTERASE ,URINE NEGATIVE (Neg); NITRITES, URINE NEGATIVE (Neg); OCCULT BLOOD,URINE NEGATIVE (Neg); PROTEIN,URINE NEGATIVE (Neg); UROBILINOGEN,URINE 0.2 E.U/dL (0.2-1.0)
[2024-06-23 16:25] LABS: BASOPHILS # (AUTO) 0.1 X10'3 (0-0.2); EOSINOPHILS # (AUTO) 0.3 X10'3 (0-0.9); EOSINOPHILS % (AUTO) 3.1 % (0-6); HEMATOCRIT 41.3 % (35.0-45.0); HEMOGLOBIN 14.2 g/dl (12.0-16.0); LYMPHOCYTES # (AUTO) 2.8 X10'3 (1.1-4.8); MEAN CORPUSCULAR HEMOGLOBIN 29.3 PG (27.0-31.0); MEAN CORPUSCULAR HGB CONC 34.5 g/dL (33.0-36.5); MEAN CORPUSCULAR VOLUME 85.1 FL (78-98); MEAN PLATELET VOLUME 8.6 FL (7.4-10.4); MONOCYTES # (AUTO) 0.7 X10'3 (0-0.9); NEUTROPHILS # (AUTO) 4.5 X10'3 (1.8-7.7); NEUTROPHILS % (AUTO) 53.9 % (42-75); PLATELET COUNT 334 X10'3 (140-440); RED BLOOD COUNT 4.85 X10'6 (4.20-5.60); RED CELL DISTRIBUTION WIDTH 13.3 % (11.5-14.5); WHITE BLOOD COUNT 8.3 X10'3 (4.5-11.0)
[2024-06-23 16:27] LABS: URINE HCG NEGATIVE (NEG)
[2024-06-23 16:28] LABS: UA COLLECTION TYPE CLN CATCH MIDSTREAM
[2024-06-23 16:45] LABS: ALANINE AMINOTRANSFERASE 23 U/L (12-78); ALBUMIN 3.2 G/DL (3.4-5.0); ALBUMIN/GLOBULIN RATIO 0.9 (1.1-1.5); ALKALINE PHOSPHATASE 109 IU/L (46-116); ANION GAP 7 (8-16); ASPARTATE AMINO TRANSFERASE 12 U/L (10-37); BILIRUBIN,TOTAL 0.5 MG/DL (0.1-1.0); BLOOD UREA NITROGEN 8 MG/DL (7-18); BUN/CREATININE RATIO 12.7 (10.0-20.0); CALCIUM 8.6 MG/DL (8.5-10.1); CHLORIDE 106 MMOL/L (99-107); CREATININE 0.63 MG/DL (0.40-0.90); GLUCOSE 105 MG/DL (70-104); LIPASE 44 U/L (16-77); POTASSIUM 4.3 MMOL/L (3.5-5.1); SODIUM 140 MMOL/L (135-145); TOTAL CARBON DIOXIDE 26.6 MMOL/L (24-32); TOTAL PROTEIN 6.7 G/DL (6.4-8.2); eCRCL 95 ML/MIN; eGFR > 90 ML/MIN
--- NOTE | 2024-06-23 17:35 | Physician Documentation ---
History of Present Illness Chief Complaint: Abdominal Pain Stated Complaint: ABD PAIN Primary Medical Doctor: JAVID TARIQ Patient is seen today with complaints of lower abdominal/pelvic pain that started a few days ago in his steadily been getting worse. Patient denies any vaginal bleeding or blood in urine or stool. 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 Patient admits to nausea but no vomiting and no shortness of breath and no chest pain and no diarrhea. Medication Reconciliation Allergies: Coded Allergies: Cephalosporins (Verified Allergy, Severe, 06/23/24) ANAPHYLAXIS Penicillins (Verified Allergy, Severe, 06/23/24) Cephalexin Monohydrate (Verified Allergy, Unknown, 06/23/24) [id number]-GZR-HlT Reductase Inhibitor (Verified Allergy, Unknown, 06/23/24) cefazolin sodium (Unverified Allergy, Unknown, 06/23/24) sulfamethoxazole (Verified Allergy, Unknown, 06/23/24) trimethoprim (Verified Allergy, Unknown, 11/07/23) Sulfa (Sulfonamide Antibiotics) (Verified Adverse Reaction, Unknown, itchy, 11/07/23) Scheduled Clindamycin HCL* (Clindamycin HCL*), 1 CAP PO Q8H Fluticasone Propionate (Flonase), 2 SPRAYS BOTHNARES DAILY Hydrocodone/Acetaminophen (Perry 5-325 Tablet), 1 TAB PO TID PRN Levothyroxine Sodium (Synthroid), 1 TAB PO DAILY, (Reported) ONDANSETRON ODT 4mg tablet (Ondansetron Odt), 1 TABLET PO Q6H Omeprazole (Omeprazole), 1 CAP PO DAILY, (Reported) Pseudoephedrine HCl (Sudafed 12 Hour), 1 TAB PO Q12H Scheduled PRN ONDANSETRON ODT 4mg tablet (Ondansetron Odt), 1 TABLET PO Q6H PRN for nausea/vomiting Prochlorperazine Maleate (Compazine), 1 TAB PO Q6H PRN PRN for headache Sumatriptan Succinate (Imitrex), 1-2 TAB PO Q2H PRN PRN for headache Past Medical History Past Medical History: Migraine, GERD, Hepatitis C, Diabetes, Hypothyroidism, Chronic Back Pain, Extremity Fracture, Anxiety, Depression Past Surgical History: appendectomy, hysterectomy, orthopedic surgeries, tubal ligation Other Past Family History: OBTAINED AND NON-CONTRIBUTORY TO CHIEF COMPLAINT Alcohol Use: Sober Drug Use: none Lives with: Family Lives In: Home Occupation: disabled Review of Systems Constitutional: Denies: chills, fever, weakness Eyes: Denies: pain, blurred vision ENT: Denies: ear pain, nose pain, throat pain, mouth pain Respiratory: Denies: cough, shortness of breath Cardiovascular: Denies: chest pain, palpitations Gastrointestinal: Denies: abdominal pain, nausea, vomiting Genitourinary: Denies: burning, dysuria Female Genitalia: Denies: vaginal discharge, pelvic pain Neurological: Denies: headache, dizziness Musculoskeletal: Denies: pain, swelling Integumentary: Denies: rash, lesions Allergic/Immunologic: Denies: hives, itching Hematologic/Lymphatic: Denies: no symptoms reported Psychiatric: Denies: depression, anxiety Physical Exam Vital Signs: Temperature: 98.5, Source: Temporal, Heart Rate: 93, Respiratory Rate: 15, BP: 142/94, Pulse Oximetry: 100, Weight: 82.650 Physical Exam General: Awake and Alert, no acute distress. HEENT: Conjunctiva pink, Sclera clear, Mucus Membranes moist. Neck: Supple without masses and tenderness. Resp: Unlabored. Lungs clear to auscultation bilaterally. Heart: Regular Rate and rhythm, normal S1 and S2 without murmur, rub or gallop. Abdomen: Patient on exam does have significant tenderness to palpation of the lower abdomen with rebound tenderness and guarding. Abdomen is soft and nondistended and no masses on palpation. Extremities: No cyanosis,clubbing or edema. Skin: Warm and Dry. Progress Results/Orders Results/Orders Vital Signs 06/23/24 15:35 Temp 98.5 Pulse 93 Resp 15 B/P (MAP) 142/94 Pulse Ox 100 Laboratory Tests Test 06/23/24 16:01 White Blood Count 8.3 Red Blood Count 4.85 Hemoglobin 14.2 Hematocrit 41.3 Mean Corpuscular Volume 85.1 Mean Corpuscular Hemoglobin 29.3 Mean Corpuscular Hemoglobin Concent 34.5 Red Cell Distribution Width 13.3 Platelet Count 334 Mean Platelet Volume 8.6 Neutrophils (%) (Auto) 53.9 Lymphocytes (%) (Auto) 34.0 Monocytes (%) (Auto) 8.0 Eosinophils (%) (Auto) 3.1 Basophils (%) (Auto) 1.0 Neutrophils # (Auto) 4.5 Lymphocytes # (Auto) 2.8 Monocytes # (Auto) 0.7 Eosinophils # (Auto) 0.3 Basophils # (Auto) 0.1 CBC Comment Urine Specimen Description Cln catch midstream Urine Color Yellow Urine Clarity Clear Urine pH 6.0 Urine Specific [place] 1.020 Urine Protein Negative Urine Glucose (UA) Negative Urine Ketones Negative Urine Occult Blood Negative Urine Nitrite Negative Urine Bilirubin Negative Urine Urobilinogen 0.2 Urine Leukocyte Esterase Negative Urine Culture Indicated Not ind Volume Urine Centrifuged 10 ml Urine HCG, Qualitative Negative Urine Comment Sodium Level 140 Potassium Level 4.3 Chloride Level 106 Carbon Dioxide Level 26.6 Anion Gap 7 L Blood Urea Nitrogen 8 Creatinine 0.63 Estimated GFR/1.73 m2 > 90 BUN/Creatinine Ratio 12.7 Glucose Level 105 H Calcium Level 8.6 Total Bilirubin 0.5 Aspartate Amino Transf (AST/SGOT) 12 Alanine Aminotransferase (ALT/SGPT) 23 Alkaline Phosphatase 109 Total Protein 6.7 Albumin 3.2 L Globulin 3.5 Albumin/Globulin Ratio 0.9 L Lipase 44 Chemistry Comments Medical Decision Making Findings Patient is seen today with complaints of lower abdominal/pelvic pain that star earnest a few days ago in his steadily been getting worse. Patient denies any vaginal bleeding or blood in urine or stool. 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 Patient admits to nausea but no vomiting and no shortness of breath and no chest pain and no diarrhea. I did discuss with the patient her unremarkable labs. Urinalysis showed no sign of UTI or infection. Patient's labs are largely unremarkable, no sign of leukocytosis and CBC is completely unremarkable. CT scan of abdomen and pelvis was ordered along with Zofran for nausea and Perry for pain in the ED, however patient eloped prior to administration and prior to imaging. Patient will return to ED with any worsening, concerning or changing symptoms. Departure Disposition: LEFT AWOL/ELOPED Impression: Primary Impression: Abdominal pain Qualified Codes: R10.30 - Lower abdominal pain, unspecified Additional Instructions: I did discuss with the patient her unremarkable labs. Urinalysis showed no sign of UTI or infection. Patient's labs are largely unremarkable, no sign of leukocytosis and CBC is completely unremarkable. CT scan of abdomen and pelvis was ordered along with Zofran for nausea and Perry for pain in the ED, however patient eloped prior to administration and prior to imaging. Patient will return to ED with any worsening, concerning or changing symptoms. Referrals: NO PRIMARY CARE PROVIDER (PCP) Signature Scribe Signature: No scribe Attestation: No scribe ZENAIDA SANCHEZ PAC June 23, 2024 17:35
== END | disposition left against medical advice (07) ==
LOC: ER 15:34
DX: R10.30 Lower abdominal pain, unspecified (principal); E03.9 Hypothyroidism, unspecified; E11.9 Type 2 diabetes mellitus without complications; F41.9 Anxiety disorder, unspecified; F32.A Depression, unspecified; Z88.0 Allergy status to penicillin; Z88.1 Allergy status to other antibiotic agents; Z88.2 Allergy status to sulfonamides; Z88.8 Allergy status to other drugs, medicaments and biological substances; Z90.49 Acquired absence of other specified parts of digestive tract; Z90.710 Acquired absence of both cervix and uterus
CPT/HCPCS: 36415; 80053; 81003; 81025; 83690; 85025; 99283; 99285; Q9967